=== PATIENT | male | born 1945 ===

== ENCOUNTER 2019-09-22 06:00 | Outpatient (RCR) | payer MEDICARE, SELFPAY | END 2019-10-07 23:59 | disposition home or self-care (01) | LOC: GPT 06:00 | PROVIDERS: PCP Electrodiagnostic Medicine; Referring Provider Orthopaedic Surgery; Visit Provider Orthopaedic Surgery | DX: Z47.1 Aftercare following joint replacement surgery (principal); Z96.651 Presence of right artificial knee joint | CPT/HCPCS: 97032; 97110; 97112; 97116; 97162; 97530; G0283 ==

== ENCOUNTER 2019-10-08 06:00 | Outpatient (RCR) | payer MEDICARE, SELFPAY | END 2019-11-06 23:59 | disposition home or self-care (01) | LOC: GPT 06:00 | PROVIDERS: PCP Electrodiagnostic Medicine; Referring Provider Orthopaedic Surgery; Visit Provider Orthopaedic Surgery | DX: Z47.89 Encounter for other orthopedic aftercare (principal); Z96.651 Presence of right artificial knee joint | CPT/HCPCS: 97032; 97110; 97112; 97116; 97140; 97164; 97530; G0283 ==

== ENCOUNTER 2019-11-07 06:00 | Outpatient (RCR) | payer MEDICARE, SELFPAY | END 2019-12-07 23:59 | disposition home or self-care (01) | LOC: GPT 06:00 | PROVIDERS: PCP Electrodiagnostic Medicine; Referring Provider Orthopaedic Surgery; Visit Provider Orthopaedic Surgery | DX: Z47.1 Aftercare following joint replacement surgery (principal); Z96.651 Presence of right artificial knee joint | CPT/HCPCS: 97032; 97110; 97112; 97116; 97530 ==

== ENCOUNTER → 2021-11-09 12:59 | Outpatient (BNVA) | payer MEDICARE, SELFPAY | PROVIDERS: PCP Electrodiagnostic Medicine; Visit Provider Podiatrist Foot & Ankle Surgery | DX: M19.172 Post-traumatic osteoarthritis, left ankle and foot (principal); M25.572 Pain in left ankle and joints of left foot; G89.29 Other chronic pain | CPT/HCPCS: 73610; 99204 ==

== ENCOUNTER → 2022-03-15 12:55 | Outpatient (BNVA) | payer MEDICARE, SELFPAY | PROVIDERS: PCP Electrodiagnostic Medicine; Visit Provider Podiatrist Foot & Ankle Surgery | DX: M25.572 Pain in left ankle and joints of left foot (principal); G89.29 Other chronic pain; M19.172 Post-traumatic osteoarthritis, left ankle and foot | CPT/HCPCS: 99214 ==